=== PATIENT | male | born 1990 | race Caucasian/White ===

== ENCOUNTER 2016-12-28 23:13 | Inpatient (IN) | payer SELFPAY ==
[~2016-12-28] VITALS: Ht 180.3 cm; Wt 65.3 kg
[2016-12-28 23:14] VITALS: BP 135/81; PULSE 125; RESP 18; TEMP 98.7; O2SAT 97
[2016-12-28] MEDS ORDERED: AMOX500C PO (23:18)
--- NOTE | 2016-12-28 23:38 | PD ---
HPI Chief Complaint: Oral / Dental Pain or Problem Time Seen by Provider: 23:24 Travel History International Travel<30 days: No Contact w/Intl Traveler<30days: No Traveled to known affect area: No History of Present Illness HPI 26yo M with no significant PMH presents to the ED with c/o left jaw pain, left neck pain for 5 days. States he fractured his left lower wisdom tooth about 1 month ago but did not seek medical attention. Then about 1 week ago, started to have left lower tooth pain and for the last 5 days has been unable to open his mouth fully and has some drooling. [place] warm at home but no documented fever. Denies any chest pain, sob, n/v, abdominal pain. PFSH Past Medical History Medical History: Denies Significant Hx Past Surgical History Surgical History: No Previous Surgery Social History Alcohol Use: Yes (OCC.) Tobacco Use: Yes (1 PPD) Substance Use: No Allergies-Medications (Allergen,Severity, Reaction): Coded Allergies: No Known Allergies (Unverified , 12/28/16) Reported Meds & Prescriptions Reported Meds & Active Scripts Active Reported Amoxicillin 500 Mg Cap 500 Mg PO TID Review of Systems Except as stated in HPI: all other systems reviewed are Neg Physical Exam Narrative GENERAL: 26yo M in moderate distress. SKIN: Focused skin assessment warm/dry. HEAD: Atraumatic. Normocephalic. EYES: Pupils equal and round. No scleral icterus. No injection or drainage. ENT: +TTP left jaw. +Trismus. Uvula midline and patent airway. Do not feel any fluctuance in mouth but exam limited due to trismus. NECK: +TTP left anterior neck with some erythema but no edema. No crepitus. CARDIOVASCULAR: Regular rate and rhythm. No murmur appreciated. RESPIRATORY: No accessory muscle use. Clear to auscultation. Breath sounds equal bilaterally. GASTROINTESTINAL: Abdomen soft, non-tender, nondistended. MUSCULOSKELETAL: No obvious deformities. No clubbing. No cyanosis. No edema. NEUROLOGICAL: Awake and alert. No obvious cranial nerve deficits. Motor grossly within normal limits. Normal speech. PSYCHIATRIC: Appropriate mood and affect; insight and judgment normal. Data Data Last Documented VS Vital Signs Date Time Temp Pulse Resp B/P (MAP) Pulse Ox O2 Delivery O2 Flow Rate FiO2 12/28/16 23:14 98.7 125 18 135/81 (99) 97 Room Air Orders Orders Complete Blood Count With Diff (12/28/16 23:33) Basic Metabolic Panel (Bmp) (12/28/16 23:33) Clindamycin Inj (Cleocin Inj) (12/28/16 23:45) Morphine Inj (Morphine Inj) (12/28/16 23:45) Ct Soft Tiss Neck W Iv Cont (12/28/16 ) Lactic Acid Sepsis Protocol (12/28/16 23:35) Sodium Chlor 0.9% 1000 Ml Inj (Ns 1000 M (12/28/16 23:45) Iohexol 350 Inj (Omnipaque 350 Inj) (12/29/16 00:27) NPO (12/29/16 00:45) Dexamethasone Inj (Decadron Inj) (12/29/16 00:45) Consult Oral, Facial Surgery (12/29/16 ) Admit Order (Ed Use Only) (12/29/16 01:03) Elevate Head Of Bed (12/29/16 01:03) Clindamycin Inj (Cleocin Inj) (12/29/16 08:00) Admit To Inpatient (12/29/16 ) Vital Signs (Adult) Q4H (12/29/16 01:02) Activity Oob Ad Yasmin (12/29/16 01:02) Diet Npo (12/29/16 Breakfast) Sodium Chlor 0.9% 1000 Ml Inj (Ns 1000 M (12/29/16 01:02) Sodium Chloride 0.9% Flush (Ns Flush) (12/29/16 01:15) Sodium Chloride 0.9% Flush (Ns Flush) (12/29/16 09:00) Ondansetron Inj (Zofran Inj) (12/29/16 01:15) Comprehensive Metabolic Panel (12/30/16 06:00) Complete Blood Count With Diff (12/30/16 06:00) Scd Bilateral/Knee High ANIA.BID (12/29/16 01:02) Umer Bilateral/Knee High ANIA.QSHIFT (12/29/16 01:04) Morphine Inj (Morphine Inj) (12/29/16 01:15) Morphine Inj (Morphine Inj) (12/29/16 01:15) Acetaminophen 1000 Mg/100 Ml (Ofirmev 10 (12/29/16 01:15) Docusate Sodium-Senna (Lesa-Colace) (12/29/16 09:00) Magnesium Hydroxide Liq (Milk Of Magnesi (12/29/16 01:15) Sennosides (Senokot) (12/29/16 01:15) Bisacodyl Supp (Dulcolax Supp) (12/29/16 01:15) Lactulose Liq (Lactulose Liq) (12/29/16 01:15) Inpatient Certification (12/29/16 ) Labs Laboratory Tests Test 12/28/16 23:50 White Blood Count 15.0 TH/MM3 Red Blood Count 4.90 MIL/MM3 Hemoglobin 15.2 GM/DL Hematocrit 43.6 % Mean Corpuscular Volume 89.1 FL Mean Corpuscular Hemoglobin 31.1 PG Mean Corpuscular Hemoglobin Concent 35.0 % Red Cell Distribution Width 13.0 % Platelet Count 259 TH/MM3 Mean Platelet Volume 8.6 FL Neutrophils (%) (Auto) 83.7 % Lymphocytes (%) (Auto) 7.6 % Monocytes (%) (Auto) 8.0 % Eosinophils (%) (Auto) 0.4 % Basophils (%) (Auto) 0.3 % Neutrophils # (Auto) 12.5 TH/MM3 Lymphocytes # (Auto) 1.1 TH/MM3 Monocytes # (Auto) 1.2 TH/MM3 Eosinophils # (Auto) 0.1 TH/MM3 Basophils # (Auto) 0.0 TH/MM3 CBC Comment DIFF FINAL Differential Comment Blood Urea Nitrogen 8 MG/DL Creatinine 0.89 MG/DL Random Glucose 104 MG/DL Calcium Level 9.4 MG/DL Sodium Level 135 MEQ/L Potassium Level 3.5 MEQ/L Chloride Level 99 MEQ/L Carbon Dioxide Level 28.2 MEQ/L Anion Gap 8 MEQ/L Estimat Glomerular Filtration Rate 105 ML/MIN Lactic Acid Level 0.9 mmol/L MDM Medical Decision Making Medical Screen Exam Complete: Yes Emergency Medical Condition: Yes Differential Diagnosis Cellulitis vs. abscess vs. radiation of dental pain Narrative Course 26yo M with left jaw pain, trismus for 5 days. Labs reviewed, leukocytosis at 15. Lactic acid normal at 0.9. BMP unremarkable. CT soft tissue neck/ mandible revealed an abscess along left inner mandible measuring 2.7 x 3.2cm with reactive lymph node in submandibular region. Pt was given IV clindamycin and morphine. Discussed with Dr. Grace and recommended medicine admission, decadron, head of bed at 30 degrees, NPO and he will see him. Discussed with Dr. Rodas and accepted to her service. Pt is currently denying any SOB and airway is patent. Critical Care Narrative Aggregate critical care time was 50 minutes. Time to perform other separately billable procedures was not included in the critical care time. My time did not include minutes spent treating any other patients simultaneously or on activities that did not directly contribute to the patient's treatment. The services I provided to this patient were to treat and/or prevent clinically significant deterioration that could result in: cardiovascular collapse or . I provided critical care services requiring my management, as noted below: Chart data review, documentation time, medication orders and management, vital sign assessments/reviewing monitor data, ordering and reviewing lab tests, ordering and interpreting/reviewing x-rays and diagnostic studies, care of the patient and discussion of the patient with the admitting physicians. Sepsis Criteria SIRS Criteria (2 or more): Heart rate over 90, WBC > 66611, < 4000 or > 10% bands Sepsis Criteria (SIRS+source): Infect source susp/known Diagnosis Primary Impression: Mandibular abscess Admitting Information Admitting Physician Requests: Admit Darcie Martinez DO Dec 28, 2016 23:38
[2016-12-28] MEDS ORDERED: CLINDAMYCIN INJ 600 MG in SODIUM CHLORIDE 0.9% INJ 100 ML IV ONE (23:45)
[2016-12-28] MEDS ORDERED: SODIUM CHLOR 0.9% 1000 ML INJ 1,000 ML IV ONE (23:45)
[2016-12-28] MEDS ORDERED: MORPHINE SULFATE 4 MG/ML INJ IV PUSH ONE (23:45)
[2016-12-29 00:08] LABS: AUTOMATED NEUTROPHIL # 12.5 TH/MM3 (1.8-7.7); BASOPHIL % 0.3 % (0.0-2.0); EOSINOPHIL # 0.1 TH/MM3 (0-0.4); EOSINOPHIL % 0.4 % (0.0-4.0); HEMATOCRIT 43.6 % (39.0-51.0); HEMO FLAGS DIFF FINAL; LYMPH % 7.6 % (9.0-44.0); LYMPHOCYTE # 1.1 TH/MM3 (1.0-4.8); MEAN CELL VOLUME 89.1 FL (80.0-100.0); MEAN CORPUSCULAR HEMOGLOBIN 31.1 PG (27.0-34.0); NEUT % 83.7 % (16.0-70.0); PLATELET COUNT 259 TH/MM3 (150-450)
[2016-12-29 00:17] LABS: BICARBONATE 28.2 MEQ/L (21.0-32.0); POTASSIUM 3.5 MEQ/L (3.5-5.1)
[2016-12-29] MEDS ORDERED: IOHEXOL 350 MG/ML 10 ML VIAL (for RAD DIAG) IVCONTRAST ONE (00:27)
--- NOTE | 2016-12-29 00:34 | RADRPT ---
EXAM DATE/TIME: 12/29/2016 00:04 [facility] COMPARISON: No previous studies available for comparison. INDICATIONS : Left side face and neck swelling. IV CONTRAST: 75 cc Omnipaque 350 (iohexol) IV RADIATION DOSE: 13.56 CTDIvol (mGy) MEDICAL HISTORY : None SURGICAL HISTORY : None. ENCOUNTER: Initial ACUITY: 4 - 6 days PAIN SCALE: 10/10 LOCATION: Left neck TECHNIQUE: Volumetric scanning of the neck was performed. Using automated exposure control and adjustment of th e mA and/or kV according to patient size, radiation dose was kept as low as reasonably achievable to obtain optimal diagnostic quality images. DICOM format image data is available electronically for r eview and comparison. FINDINGS: NASOPHARYNX: The nasopharyngeal airway has a normal configuration. No mucosal thickening or mass is seen. OROPHARYNX: The intrinsic muscles of the tongue are symmetric. The tonsillar pillars are intact. The prevertebr al soft tissues are not thickened. LARYNX: The supraglottic, glottic, and infraglottic structures are intact. PARAPHARYNGEAL: The parapharyngeal space is intact. SALIVARY GLANDS: The parotid and submandibular glands are intact. LYMPH NODES: No enlarged or necrotic-appearing nodes. THYROID: Homogeneous enhancement without evidence of nodule. BONES: Unremarkable. OTHER: There is extensive soft tissue swelling along the left cheek. There is an area of low-density with pe ripheral enhancement along the inner left mandible measuring 2.7 x 3.2 cm consistent with abscess. [place] bmandibular lymph node is seen measuring 2.0 x 1.3 cm. There is central low-density within the waiter/waitress cocktail lounge ior molar of the mandible on the left. This does not involve the roots but may be the cause of absces s. CONCLUSION: 1. There is an abscess along the left inner mandible measuring 2.7 x 3.2 cm with reactive lymph node the submandibular region measuring 1.3 x 2.0 cm. 2. Central low-density within the posterior molar of the left mandible which does not involve the mohamud t but may be the cause of the abscess. Srinivasan Gaona MD on December 29, 2016 at 0:30 Board Certified Radiologist. This report was verified electronically.
[2016-12-29] MEDS ORDERED: DEXAMETHASONE SOD PHOS 20 MG/5 ML VIAL IV PUSH ONE (00:45)
[2016-12-29] MEDS ORDERED: BISACODYL 10 MG SUPP RECTAL PRN (01:15)
[2016-12-29] MEDS ORDERED: MORPHINE SULFATE 4 MG/ML INJ IV PUSH PRN (01:15)
[2016-12-29] MEDS ORDERED: ACETAMINOPHEN 1000 MG/100 ML 100 ML IV PRN (01:15)
[2016-12-29] MEDS ORDERED: LACTULOSE SYRUP 20 GM/30 ML CUP PO PRN (01:15)
[2016-12-29] MEDS ORDERED: ONDANSETRON HCL 4 MG/2 ML VIAL IVP PRN (01:15)
[2016-12-29] MEDS ORDERED: SENNOSIDES 8.6 MG TAB PO PRN (01:15)
[2016-12-29] MEDS ORDERED: MAGNESIUM HYDROXIDE SUSP 30 ML CUP PO PRN (01:15)
[2016-12-29] MEDS ORDERED: SODIUM CHLORIDE 0.9% FLUSH 10 ML FLUSH IV FLUSH PRN (01:15)
--- NOTE | 2016-12-29 02:24 | HHI.HP ---
HPI Service [facility] Primary Care Physician No Primary Care Physician Admission Diagnosis Left mandible abscess Diagnoses: (1) Sepsis Diagnosis: Principal (2) Mandibular abscess Diagnosis: Principal (3) Tobacco abuse Diagnosis: Principal Travel History International Travel<30 Days: No Contact w/Intl Traveler <30 Da: No Traveled to Known Affected Are: No Sepsis Criteria SIRS Criteria (2 or more): Heart rate over 90, WBC > 23505, < 4000 or > 10% bands Sepsis Criteria (SIRS+source): Infect source susp/known History of Present Illness This is a 26-year-old male with no significant PMH who presented to the ER with complaints of left sided neck and jaw pain for approx 5 days. States he had issue w/ his wisdom tooth approx 1mo ago but didn't seek medical attention at that time despite c/o pain. Approx 1wk ago noted worsening pain to left tooth and jaw. States he had Amoxicillin left over from previous tooth infection and has been taking that for the last 5 days w/ no significant improvement. Reports subjective fever, chills. On arrival, BP 135/81, HR 125, O2 sat 97% on RA, Afebrile. The VPC 15. Chemistry essentially unremarkable. Lactic Acid normal. CT Neck with abscess along the left inner mandible measuring 2.7 x 3.2 cm with reactive lymph nodes. Dr. Grace consulted by ER physician, will evaluate in a.m. for likely surgical intervention. S/p Decadron and Clinda IV. Review of Systems Except as stated in HPI: all other systems reviewed are Neg ROS: 14 point review of systems otherwise negative. Past Family Social History Past Medical History PMH: None Past Surgical History PAST SURGICAL HISTORY: None Allergies: Coded Allergies: No Known Allergies (Unverified , 12/28/16) Family History PAST FAMILY HISTORY: Reviewed. No h/o DM or CAD Social History PAST SOCIAL HISTORY: Occasional alcohol. Smokes 1ppd. Negative for drugs. Physical Exam Vital Signs Vital Signs Date Time Temp Pulse Resp B/P (MAP) Pulse Ox O2 Delivery O2 Flow Rate FiO2 12/28/16 23:14 98.7 125 18 135/81 (99) 97 Room Air Physical Exam PE: GENERAL: Young male in no acute distress. HEENT: PERRLA, EOMI. No scleral icterus or conjunctival pallor. No lid lag or facial droop. Tenderness to palpation left jaw. +Trismus CARDIOVASCULAR: Regular rate and rhythm. No obvious murmurs to auscultation. No chest tenderness to palpation. RESPIRATORY: No obvious rhonchi or wheezing. Clear to auscultation. Breath sounds equal bilaterally. GASTROINTESTINAL: Abdomen soft, non-tender, nondistended. BS normal. MUSCULOSKELETAL: Extremities without clubbing, cyanosis, or edema. No obvious deformities. NEUROLOGICAL: Awake, alert and oriented x4. No focal neurologic deficits. Moving both upper and lower extremities spontaneously. Laboratory Laboratory Tests Test 12/28/16 23:50 White Blood Count 15.0 Red Blood Count 4.90 Hemoglobin 15.2 Hematocrit 43.6 Mean Corpuscular Volume 89.1 Mean Corpuscular Hemoglobin 31.1 Mean Corpuscular Hemoglobin Concent 35.0 Red Cell Distribution Width 13.0 Platelet Count 259 Mean Platelet Volume 8.6 Neutrophils (%) (Auto) 83.7 Lymphocytes (%) (Auto) 7.6 Monocytes (%) (Auto) 8.0 Eosinophils (%) (Auto) 0.4 Basophils (%) (Auto) 0.3 Neutrophils # (Auto) 12.5 Lymphocytes # (Auto) 1.1 Monocytes # (Auto) 1.2 Eosinophils # (Auto) 0.1 Basophils # (Auto) 0.0 CBC Comment DIFF FINAL Differential Comment Blood Urea Nitrogen 8 Creatinine 0.89 Random Glucose 104 Calcium Level 9.4 Sodium Level 135 Potassium Level 3.5 Chloride Level 99 Carbon Dioxide Level 28.2 Anion Gap 8 Estimat Glomerular Filtration Rate 105 Lactic Acid Level 0.9 Result Diagram: 12/28/16234912/28/162349 Caprini VTE Risk Assessment Caprini VTE Risk Assessment: No/Low Risk (score <= 1) Caprini Risk Assessment Model Point Value = 1 Point Value = 2 Point Value = 3 Point Value = 5 Age 41-60 Minor surgery BMI > 25 kg/m2 Swollen legs Varicose veins or History of unexplained or recurrent spontaneous Oral contraceptives or hormone replacement Sepsis (< 1 month) Serious lung disease, including pneumonia (< 1 month) Abnormal pulmonary function Acute myocardial infarction Congestive heart failure (< 1 month) History of inflammatory bowel disease Medical patient at bed rest Age 61-74 Arthroscopic surgery Major open surgery (> 45 min) Laparoscopic surgery (> 45 min) Malignancy Confined to bed (> 72 hours) Immobilizing plaster cast Central venous access Age >= 75 History of VTE Family history of VTE Factor V Leiden Prothrombin [id number] Lupus anticoagulant Anticardiolipin antibodies Elevated serum homocysteine Heparin-induced thrombocytopenia Other congenital or acquired thrombophilia Stroke (< 1 month) Elective arthroplasty Hip, pelvis, or leg fracture Acute spinal cord injury (< 1 month) Prophylaxis Regimen Total Risk Factor Score Risk Level Prophylaxis Regimen 0-1 Low Early ambulation 2 Moderate Order ONE of the following: *Sequential Compression Device (SCD) *Heparin 5000 units SQ BID 3-4 Higher Order ONE of the following medications: *Heparin 5000 units SQ TID *Enoxaparin/Lovenox 40 mg SQ daily (WT < 150 kg, CrCl > 30 mL/min) *Enoxaparin/Lovenox 30 mg SQ daily (WT < 150 kg, CrCl > 10-29 mL/min) *Enoxaparin/Lovenox 30 mg SQ BID (WT < 150 kg, CrCl > 30 mL/min) AND/OR *Sequential Compression Device (SCD) 5 or more Highest Order ONE of the following medications: *Heparin 5000 units SQ TID (Preferred with Epidurals) *Enoxaparin/Lovenox 40 mg SQ daily (WT < 150 kg, CrCl > 30 mL/min) *Enoxaparin/Lovenox 30 mg SQ daily (WT < 150 kg, CrCl > 10-29 mL/min) *Enoxaparin/Lovenox 30 mg SQ BID (WT < 150 kg, CrCl > 30 mL/min) AND *Sequential Compression Device (SCD) Assessment and Plan Problem List: (1) Sepsis ICD Code: A41.9 - Sepsis, unspecified organism (2) Mandibular abscess ICD Code: M27.2 - Inflammatory conditions of jaws (3) Tobacco abuse ICD Code: Z72.0 - Tobacco use Assessment and Plan A/P: 1. Sepsis: HR 120's, WBC 15, Source-mandibular abscess. S/p Clinda IV in ER, continue w/ IV Abx. IVF for hydration. 2. Left Mandibular Abscess: c/o left lower tooth pain x5 days, taking left over Amoxicillin w/ no improvement. CT Neck w/ abscess along the left inner mandible measuring 2.7 x 3.2 cm, images reviewed by me. Dr. Grace consulted by ER physician, will eval for likely surgical intervention. S/p Decadron and Clinda in ER. Continue IV Abx, analgesic/antiemetics. 3. Tobacco Abuse: Counselled. NicoDerm prn if needed. 4. DVT Prophylaxis: SCD/Teds. 5. Social work for d/c planning as needed. 6. Case discussed w/ ER physician at length. Physician Certification 2 Midnight Certification Type: Admission for Inpatient Services Order for Inpatient Services The services are ordered in accordance with Medicare regulations or non- Medicare payer requirements, as applicable. In the case of services not specified as inpatient-only, they are appropriately provided as inpatient services in accordance with the 2-midnight benchmark. Estimated LOS (days): 2 days is the estimated time the patient will need to remain in the hospital, assuming treatment plan goals are met and no additional complications. Post-Hospital Plan: Not yet determined Tran Rodas MD Dec 29, 2016 02:24
[2016-12-29] MEDS: SODIUM CHLOR 0.9% 1000 ML INJ 1,000 ML IV SCH ×3 (02:39→21:02)
[2016-12-29 04:06] VITALS: BP 126/63; PULSE 100; RESP 17; TEMP 99.3; O2SAT 97
[2016-12-29] MEDS ORDERED: DEXAMETHASONE SOD PHOS 4 MG/ML VIAL IV PUSH SCH (06:00)
[2016-12-29] MEDS ORDERED: CLINDAMYCIN INJ 900 MG in SODIUM CHLORIDE 0.9% INJ 100 ML IV SCH (08:00)
[2016-12-29 08:13] VITALS: BP 122/71; PULSE 82; RESP 24; TEMP 98; O2SAT 96
--- NOTE | 2016-12-29 08:40 | MB ---
cc: MARIELA GRACE DMD DATE OF CONSULTATION December 29, 2016 REASON FOR CONSULTATION Abscess left mandible. HISTORY OF PRESENT ILLNESS This is a 26-year-old male who approximately was having tooth discomfort in the left posterior mandible for approximately two weeks. He reports that his wisdom tooth in the back cracked and he never thought much about it and it started giving him discomfort with brushing the teeth. Subsequent to that he reports the swelling started and he was on some amoxicillin, some leftover amoxicillin, but it has not resolved. He never proceeded to see any dentist or oral surgeon. I have seen and examined this patient. He is alert, awake and oriented x 3, in no acute distress. He reports some pain in the left mandible region. Denies any fever, chills, nausea, vomiting, any shortness of breath, difficulty breathing or difficulty swallowing. He reports that the wisdom tooth was cracked. PAST MEDICAL HISTORY Denied. MEDICATIONS Denied. ALLERGIES Denied. SOCIAL HISTORY Denies any illicit drugs. Occasional alcohol and smokes about a pack per day of tobacco. PHYSICAL EXAMINATION On examination, tenderness to palpation of the left side mandible region. No neck edema. Trachea is in midline. Mild left facial edema on the left side region of the mandible. Intraorally he opens up approximately only one finger wide secondary to pain. He is guarding against pain. I do not see any swelling intraorally or any elevation of the floor of the mouth at this point. The left posterior wisdom tooth #17 is barely visible. It could be possibly soft tissue/partial bony or complete bony at this point. The flesh is pink and well-perfused. No pus noted. LABORATORY DATA White count is 15.0, H&H is 15.2 and 43.6 with platelets of 259. Sodium is 135, potassium is 3.5, chloride is 99, carbon dioxide is 28.2, BUN is 8 and creatinine 0.89. IMAGING STUDIES CT scan of the neck: Soft tissue neck shows a large abscess collection to the medial aspect of the mandible on the left side, extending down into the neck. Also a large node is noted. IMPRESSION AND PLAN This is a 26-year-old male with a history of broken tooth two weeks ago, now pain x5 days. This could be possibly the wisdom tooth on the left side, tooth #17. We will plan to extract that tooth and any other necessary teeth on the left posterior mandible close to the region of the abscess and I&D left neck/mandible space abscess. The benefits, risks and indication of the procedure, procedure in detail and the options of no treatment were all discussed with this patient. The risks include but are not limited to any postop pain, infection, bleeding, damage to the adjacent teeth, soft tissue, hard tissue, anesthesia complications including , recurrence of the infection, further surgeries as required, numbness. The patient is aware that he may be in the ICU overnight and that he will have drains in his neck and his mouth. Advised to see his dentist or oral surgeon for the remaining other teeth. All questions and concerns were addressed. Mariela Grace DMD RRT/BRADEN /8:06 AM /8:24 AM
[2016-12-29] MEDS: DOCUSATE SODIUM 50 MG/SENNA 8.6 MG TAB PO SCH ×2 (08:57→20:39)
[2016-12-29] MEDS: SODIUM CHLORIDE 0.9% FLUSH 10 ML FLUSH IV FLUSH SCH ×2 (08:57→20:39)
[2016-12-29] MEDS ORDERED: CHLORHEXIDINE GLUCONATE 2 % 1 PACK (2 CLOTHS) TOPICAL PRN (09:45)
[2016-12-29] MEDS ORDERED: INSULIN HUMAN REGULAR 1,000 UNITS/10 ML VIAL SQ PRN (09:45)
[2016-12-29] MEDS ORDERED: POVIDONE IODINE 5% (ANTISEPSIS KIT) 4 APPLICATIONS EACH NARE PRN (09:45)
[2016-12-29] MEDS ORDERED: SODIUM CHLORID 0.9% 500 ML IV PRN (09:45)
[2016-12-29] MEDS ORDERED: LACTATED RINGER'S 1000 ML IV PRN (09:45)
[2016-12-29] MEDS ORDERED: METOPROLOL TARTRATE 25 MG TAB PO PRN (09:45)
[2016-12-29 11:48] VITALS: BP 125/72; PULSE 99; RESP 24; TEMP 98.5; O2SAT 96
[2016-12-29] MEDS ORDERED: LIDOCAINE 2%/EPINEPHrine PF 1:200,000 20ML SDV ONE (13:37)
[2016-12-29] MEDS ORDERED: CHLORHEXIDINE GLUCONATE 0.12% 15 ML CUP ONE (13:37)
[2016-12-29] MEDS ORDERED: KETOROLAC TROMETHAMINE 30 MG/ML (IVP) VIAL IV PUSH ONE (13:38)
[2016-12-29] MEDS ORDERED: ROCURONIUM INJ 50 MG/5 ML SYRINGE IV PUSH ONE (13:38)
[2016-12-29] MEDS ORDERED: PROPOFOL 200 MG/20 ML AMP IV ONE (13:38)
[2016-12-29] MEDS ORDERED: DEXAMETHASONE SOD PHOS 4 MG/ML VIAL IV ONE (13:38)
[2016-12-29] MEDS ORDERED: MIDAZOLAM HCL 2 MG/2 ML VIAL IV ONE (13:38)
[2016-12-29] MEDS ORDERED: GLYCOPYRROLATE 1 MG/5 ML SYRINGE IV PUSH ONE (13:38)
[2016-12-29] MEDS ORDERED: MICROFIBRILLAR COLLAGEN HEMOSTAT 1 GM PKT ONE (13:38)
[2016-12-29] MEDS ORDERED: NEOSTIGMINE 3 MG/3 ML SYR IV ONE (13:38)
[2016-12-29] MEDS ORDERED: LIDOCAINE HCL 1% PF 5 ML AMPULE OTHER ONE (13:38)
[2016-12-29] MEDS ORDERED: ONDANSETRON HCL 4 MG/2 ML VIAL IV PUSH ONE (13:38)
[2016-12-29] MEDS ORDERED: MICROFIBRILLAR COLLAGEN HEMOSTAT 70 X 35 MM BANDAGE ONE (13:39)
[2016-12-29] MEDS ORDERED: OXYMETAZOLINE HCL 0.05% 15 ML NASAL SPRAY ONE (15:11)
[2016-12-29] MEDS ORDERED: ceFAZolin INJ 1,000 MG VIAL ONE (15:18)
[2016-12-29] MEDS ORDERED: SODIUM CHLORIDE 0.9% INJ 100 ML ONE ×2 (15:18)
[2016-12-29] MEDS ORDERED: ACETAMINOPHEN 1000 MG/100 ML 100 ML IV ONE (16:17)
[2016-12-29] MEDS ORDERED: DO NOT ADM ANY ANTICOAGULANT DRUGS PRN (17:00)
--- NOTE | 2016-12-29 17:03 | HHI.PR ---
Immediate Post Op Note Procedure Date: Dec 29, 2016 Pre Op Diagnosis: Left neck/mandible abscess decayed/broken tooth #17 Post Op Diagnosis: anabela Surgeon: Jak Grace Mirror Painter(s): Eric Lloyd Procedure: I&D left mandible/neck abscess extraction of tooth #17 exam under anesthesia Findings: pus , broken, decayed tooth #17 Complications: none Estimated blood loss: 10cc Anesthesia: General, Local (2%lidocaine with 1:200,000 epi approx 7cc) Drains: [place] (x 3) Patient to: PACU Patient Condition: Good Date/Time of Procedure: SEE SURGICAL CARE RECORD Jak Grace DMD Dec 29, 2016 17:03
[2016-12-29] MEDS ORDERED: *MEPERIDINE 25 MG INJ VIAL PERIprocedural Use ONLY ONE (17:21)
[2016-12-29] MEDS ORDERED: methylPREDNISolone SOD SUCC 125 MG/2 ML VIAL ONE (17:43)
[2016-12-29 18:00] VITALS: BP 129/75; PULSE 88; RESP 18; TEMP 98.1; O2SAT 97
[2016-12-29] MEDS: methylPREDNISolone SOD SUCC 125 MG/2 ML VIAL IV SCH ×2 (18:00→23:03)
[2016-12-29 20:00] VITALS: BP 121/74; PULSE 94; RESP 18; TEMP 98.5; O2SAT 98
[2016-12-29] MEDS: CLINDAMYCIN 600 MG/NS 100 ML IV SCH ×2 (20:39)
[2016-12-29 22:00] VITALS: PULSE 72
[2016-12-29] MEDS: MORPHINE SULFATE 4 MG/ML INJ IV PUSH PRN (23:04)
[2016-12-30] VITALS (8 sets, daily range): BP systolic 128–133; BP diastolic 74–89; PULSE 62–80; RESP 15–20; TEMP 97.6–98.9; O2SAT 96–98
[2016-12-30] MEDS: CLINDAMYCIN 600 MG/NS 100 ML IV SCH ×6 (03:15→21:19)
[2016-12-30] MEDS: SODIUM CHLOR 0.9% 1000 ML INJ 1,000 ML IV SCH ×3 (04:04→12:57)
[2016-12-30 05:55] LABS: AUTOMATED NEUTROPHIL # 10.3 TH/MM3 (1.8-7.7); BASOPHIL % 0.1 % (0.0-2.0); HEMATOCRIT 39.5 % (39.0-51.0); HEMO FLAGS DIFF FINAL; LYMPH % 6.6 % (9.0-44.0); LYMPHOCYTE # 0.7 TH/MM3 (1.0-4.8); MEAN CELL VOLUME 90.3 FL (80.0-100.0); MEAN CORPUSCULAR HEMOGLOBIN 30.2 PG (27.0-34.0); MEAN CORPUSCULAR HGB CONC 33.4 % (32.0-36.0); MONO % 2.7 % (0.0-8.0); NEUT % 90.6 % (16.0-70.0); PLATELET COUNT 280 TH/MM3 (150-450); RED BLOOD COUNT 4.38 MIL/MM3 (4.50-5.90); RED CELL DISTRIBUTION WIDTH 13.3 % (11.6-17.2); WHITE BLOOD COUNT 11.3 TH/MM3 (4.0-11.0)
[2016-12-30] MEDS ORDERED: methylPREDNISolone ACETATE 80 MG/ML VIAL IM ONE (06:00)
[2016-12-30 06:28] LABS: ALKALINE PHOSPHATASE 49 U/L (45-117); ALT (GPT) 23 U/L (12-78); ANION GAP 7 MEQ/L (5-15); AST (GOT) 16 U/L (15-37); BICARBONATE 26.4 MEQ/L (21.0-32.0); BLOOD UREA NITROGEN 11 MG/DL (7-18); CHLORIDE 104 MEQ/L (98-107); GLOMERULAR FILTRATION RATE 200 ML/MIN (>89); POTASSIUM 4.5 MEQ/L (3.5-5.1); SODIUM (NA) 137 MEQ/L (136-145); TOTAL BILIRUBIN ADULT 0.3 MG/DL (0.2-1.0)
--- NOTE | 2016-12-30 07:47 | MP ---
cc: MARIELA GRACE DMD [facility], DATE OF SURGERY 12/29/2016 PREOPERATIVE DIAGNOSIS Left neck/mandible abscess, also decayed broken tooth number 17. POSTOPERATIVE DIAGNOSIS Left neck/mandible abscess, also decayed broken tooth number 17. PROCEDURE Incision and drainage left neck/mandible abscess, extraction of tooth number 17, also examination under anesthesia. ANESTHESIA General also 2% lidocaine with 1:200,000 epinephrine approximately [address] Grace [employer]ER SERVICE SPECIALIST Eric Lloyd FINDINGS Pus, also broken decayed tooth number 17. ESTIMATED BLOOD LOSS 10 cc approximately. DRAINS Brice x3 DISPOSITION The patient tolerated the procedure well, extubated and taken to the PACU. INDICATIONS FOR PROCEDURE This is a 26-year-old male who for the past two weeks has had a decayed broken tooth number #17, a wisdom tooth the patient reports. Subsequently for last several days, he began to have more pain in that region extending down to his face going down to his neck. He has difficulty opening his mouth. He reports that all this started after the tooth number 17 broken in his mouth. He has a decay on tooth number 17 and he has purulence/pus accumulation medial aspect of the mandible going into the neck on the left mandible region and extending superiorly to the medial aspect of the ramus. In order to restore proper form and function, it is necessary the patient undergo the above listed procedure. The benefits, risks, indication of the procedure, the procedure in detail and the options of no treatment including alternatives were discussed with this patient. The risks are not limited to any postop pain, infection, bleeding, damage to the adjacent teeth, soft tissue, hard tissue, anesthesia complications, numbness, recurrence of infection, further surgical procedures as required. All questions and concerns were addressed. Consent is signed in the chart. PROCEDURE NOTE The patient was met perioperatively. The left side of the surgical side of the face was marked and all questions and concerns were addressed. The patient was taken to operating suite and put on the table in the supine position. He underwent glide scope intubation. At this time, a time-out was taken to identify the patient, the site, the procedure, surgery and all were in agreement. All pressure points were padded. Betadine prep was done on the face and on the neck. The patient draped in a normal sterile fashion. A bite block was gently placed on the right side of the mouth where the tube is going out. A retractor was used to gently retract the tongue and the back of the throat was suctioned. A moistened Ray-Lali was used as a throat pack. Peridex mouth rinse was then use. As we did this procedure, there was an area of pus pocketing that on the medial aspect of the ascending ramus superior to tooth number 17 that was so fluctuant that it just started pouring out pus. A culture was now taken out of that site. We took a hemostat and did a blunt dissection going posteriorly, superiorly and inferiorly. It appears that he is going on the medial aspect of the mandible on the ascending ramus going up and then looked like he wants to go towards lateral pharyngeal space, but I do not see any swelling in the posterior oropharynx or any lateral pharyngeal space. The uvula is at midline. 2% lidocaine with 1:200,000 epinephrine was now injected in the left neck where I was going to plan to make the incision and then the inferior nerve buccal block on the left 17 number site. Using a periosteal elevator, we slightly reflected the tissue on the lingual F18-17 site. As , I encountered more pus there. Once this was done, an elevator forceps was used to gently just take that tooth #17, it just pulled right out and more pus came out from underneath it and some blood in all regions from that site and was all noted in the whole site. We irrigated the whole area with saline solution. You can see that when I am irrigating the superior aspect where it was draining on the medial aspect of the mandible, the saline solution began to come out from the extraction socket. Also, irrigating the extraction socket, I could see the fluids all trying to come out on the lingual aspect of the mandible where I believe that the filling started coming out. Once this was all done, a 15 blade was used to make a small stab incision in the left mandible in the left neck region. A hemostat was used to do a blunt dissection to the medial aspect of the mandible on the left side and to the right of the region of tooth number 17. A quarter-inch Brice drain was grabbed and placed into that site. Coming out to the neck where it was going from the 17 site down into the neck. I can see it inside the mouth. Then another Nils drain was placed on the medial aspect superior of the ascending ramus and then under the mandible was placed on the lateral aspect of the mandible towards the angle of the mandible. The I take the periosteum also on the buccal aspect of the mandible and went down to the inferior border subperiosteally and no pus was noted there, but I put a drain there also. All the drains were secured 2-0 silk sutures. A 3-0 chromic suture was used to reapproximate the flap that was created lateral hockey stick behind tooth number 17. This was closed with 3-0 chromic suture. All sites were irrigated with saline solution. Once this was done, the back of the throat was suctioned. The throat pack and other throat pack, which was also placed intraoperatively, both the throat packs were removed. The back of the throat was nicely suctioned. Bite block was removed. Finally we put a 4x4 and Ismael dressing on the neck. The patient tolerated the procedure well. No complications noted. At the end of the procedure, all sponge and needle counts were accounted for. The patient will be taken to the ICU for observation. ADDENDUM Examination under anesthesia shows multiple decayed teeth, poor oral hygiene, a lot of plaque and calculus. The patient is going to require to follow up with a dentist as well oral surgeon. Mariela Grace DMD RRT/MARKUS /4:52 PM /7:19 AM
[2016-12-30] MEDS: SODIUM CHLORIDE 0.9% FLUSH 10 ML FLUSH IV FLUSH SCH ×2 (08:14→21:20)
[2016-12-30] MEDS: DOCUSATE SODIUM 50 MG/SENNA 8.6 MG TAB PO SCH ×2 (08:14→21:19)
--- NOTE | 2016-12-30 09:46 | HHI.PR ---
Subjective Remarks Patient resting comfortably. States pain is controlled. Feels tired. Objective Vitals Vital Signs Date Time Temp Pulse Resp B/P (MAP) Pulse Ox O2 Delivery O2 Flow Rate FiO2 12/30/16 08:00 97.9 63 15 133/74 (93) 96 12/30/16 08:00 68 12/30/16 07:00 95 Room Air 12/30/16 06:00 62 12/30/16 04:00 97.7 64 15 130/82 (98) 96 12/30/16 04:00 64 12/30/16 02:00 68 12/30/16 00:00 75 12/30/16 00:00 98.9 75 20 133/89 (104) 96 12/29/16 22:00 72 12/29/16 20:00 98.5 94 18 121/74 (90) 98 12/29/16 20:00 94 12/29/16 18:00 98.1 88 18 129/75 (93) 97 12/29/16 17:45 98.2 83 16 128/81 (97) 98 Room Air 12/29/16 17:30 85 16 126/80 (95) 96 Room Air 12/29/16 17:15 87 16 132/83 (99) 95 Room Air 12/29/16 17:00 92 17 140/92 (108) 97 Room Air 12/29/16 16:55 98.2 99 18 142/92 (109) 97 Room Air 12/29/16 11:48 98.5 99 24 125/72 (89) 96 I/O 12/29/16 12/29/16 12/29/16 12/30/16 12/30/16 12/30/16 07:00 15:00 23:00 07:00 15:00 23:00 Intake Total 1100 ml 1240 ml 1380 ml Output Total 10 ml 600 ml Balance 1100 ml 1230 ml 780 ml Intake Oral 100 ml IV Total 1100 ml 40 ml 1280 ml Other 1200 ml Output Urine Total 600 ml Estimated Blood Loss 10 ml # Voids 0 Result Diagram: 12/30/16 0445 12/30/16 0445 Imaging Last Impressions Neck CT 12/28/16 0000 Signed Impressions: Service Date/Time: December 00:04 - CONCLUSION: 1. There is an abscess along the left inner mandible measuring 2.7 x 3.2 cm with reactive lymph node the submandibular region measuring 1.3 x 2.0 cm. 2. Central low-density within the posterior molar of the left mandible which does not involve the root but may be the cause of the abscess. Srinivasan Gaona MD Objective Remarks General: No acute distress. Heart: Regular rate and rhythm. No murmur. Lungs: Clear to auscultation bilaterally. No wheezes, rales, or rhonchi. Breathing is nonlabored. Abdomen: Soft, nontender, nondistended. Extremities: No lower extremity edema. SCDs. Psych: Alert and oriented. Procedures 12/29/16 incision and drainage left neck/mandible abscess, extraction of tooth # 17, examination under anesthesia Urinary Catheter: No Vascular Central Line Catheter: No A/P Problem List: (1) Sepsis ICD Code: A41.9 - Sepsis, unspecified organism (2) Mandibular abscess ICD Code: M27.2 - Inflammatory conditions of jaws (3) Tobacco abuse ICD Code: Z72.0 - Tobacco use Assessment and Plan 1. Sepsis secondary to abscess: Patient presented with tachycardia, leukocytosis. Continue IV antibiotics. Continue IV fluids. 2. Left mandible abscess: Status post incision and drainage with removal of tooth. Management per oral maxillofacial surgery. 3. Tobacco abuse: Patient has been counseled. 4. DVT prophylaxis: DELORIS Douglas. Discharge Planning Transfer to medical/surgical floor. Chris Lambert MD Dec 30, 2016 09:46
[2016-12-30] MEDS: MORPHINE SULFATE 4 MG/ML INJ IV PUSH PRN (10:03)
[2016-12-30] MEDS ORDERED: ACETAMINOPHEN/HYDROcodone 325 MG/10 MG TAB PO PRN (13:15)
--- NOTE | 2016-12-30 14:06 | HHI.PR ---
Subjective Remarks pod 1 s/p I & D left neck/mandible abscess and extraction of tooth #17 pt seen and examined, this morning AAOx3 , nad, tolerating po reports feeling much better, and able to open mouth more denies f/c/n/v/sob/difficulty breathing/difficulty swallowing Objective Vital Signs Date Time Temp Pulse Resp B/P (MAP) Pulse Ox O2 Delivery O2 Flow Rate FiO2 12/30/16 10:48 98.3 80 20 130/79 (96) 96 12/30/16 08:00 97.9 63 15 133/74 (93) 96 12/30/16 08:00 68 12/30/16 07:00 95 Room Air 12/30/16 06:00 62 12/30/16 04:00 97.7 64 15 130/82 (98) 96 12/30/16 04:00 64 12/30/16 02:00 68 12/30/16 00:00 75 12/30/16 00:00 98.9 75 20 133/89 (104) 96 12/29/16 22:00 72 12/29/16 20:00 98.5 94 18 121/74 (90) 98 12/29/16 20:00 94 12/29/16 18:00 98.1 88 18 129/75 (93) 97 12/29/16 17:45 98.2 83 16 128/81 (97) 98 Room Air 12/29/16 17:30 85 16 126/80 (95) 96 Room Air 12/29/16 17:15 87 16 132/83 (99) 95 Room Air 12/29/16 17:00 92 17 140/92 (108) 97 Room Air 12/29/16 16:55 98.2 99 18 142/92 (109) 97 Room Air I/O 12/29/16 12/29/16 12/29/16 12/30/16 12/30/16 12/30/16 07:00 15:00 23:00 07:00 15:00 23:00 Intake Total 1100 ml 1240 ml 1380 ml 200 ml Output Total 10 ml 600 ml 775 ml Balance 1100 ml 1230 ml 780 ml -575 ml Intake Oral 100 ml 200 ml IV Total 1100 ml 40 ml 1280 ml Other 1200 ml Output Urine Total 600 ml 775 ml Estimated Blood Loss 10 ml # Voids 0 # Bowel Movements 0 Result Diagram: 12/30/16 0445 12/30/16 0445 Other Results gram + jamal Objective Remarks neck dressing/drain in place no neck edema, reduction in left facial edema increased range of opening, no elevation fom/tongue', no deviation of uvula no pus noted, all [address] extraction/surgical sites hemostatic/, wound margins well approximated Assessment and Plan Assessment and Plan pod 1 s/p I & D left neck/mandible abscess and extraction of tooth #17 - significantly improved decrease in WBC final culture pending continue abx plan for drain removal tomorrow Jak Grace DMD Dec 30, 2016 14:06
[2016-12-30] MEDS: ACETAMINOPHEN/HYDROcodone 325 MG/5 MG TAB PO PRN ×2 (15:32→21:19)
[2016-12-31 00:13] VITALS: BP 119/70; PULSE 68; RESP 18; TEMP 97.3; O2SAT 96
[2016-12-31] MEDS: ACETAMINOPHEN/HYDROcodone 325 MG/5 MG TAB PO PRN ×2 (01:45→11:37)
[2016-12-31] MEDS: SODIUM CHLOR 0.9% 1000 ML INJ 1,000 ML IV SCH (03:02)
[2016-12-31] MEDS: CLINDAMYCIN 600 MG/NS 100 ML IV SCH ×2 (04:09)
[2016-12-31 04:23] VITALS: BP_SYST 119; BP_SYST 134; BP_DIAS 70; BP_DIAS 80; PULSE 68; PULSE 71; RESP 18; RESP 20; TEMP 97.3; TEMP 97.9; O2SAT 96; O2SAT 98
--- NOTE | 2016-12-31 07:59 | HHI.PR ---
Subjective Remarks pod 2 s/p I & D left neck/mandible abscess and extraction of tooth #17 pt seen and examined, this morning, nurse at bedside AAOx3 , nad, tolerating po better reports feeling much better denies f/c/n/v/sob/difficulty breathing/difficulty swallowing Objective Vital Signs Date Time Temp Pulse Resp B/P (MAP) Pulse Ox O2 Delivery O2 Flow Rate FiO2 12/31/16 04:23 97.9 71 20 134/80 (98) 98 12/31/16 03:02 18 12/31/16 00:13 97.3 68 18 119/70 (86) 96 12/30/16 20:37 97.9 68 18 128/78 (95) 98 12/30/16 16:12 97.6 76 20 133/79 (97) 98 12/30/16 10:48 98.3 80 20 130/79 (96) 96 12/30/16 08:00 97.9 63 15 133/74 (93) 96 12/30/16 08:00 68 I/O 12/30/16 12/30/16 12/30/16 12/31/16 12/31/16 12/31/16 07:00 15:00 23:00 07:00 15:00 23:00 Intake Total 1380 ml 780 ml 100 ml Output Total 600 ml 775 ml Balance 780 ml 5 ml 100 ml Intake Oral 100 ml 680 ml IV Total 1280 ml 100 ml 100 ml Output Urine Total 600 ml 775 ml # Voids 1 2 1 # Bowel Movements 0 1 0 Result Diagram: 12/30/16 0445 12/30/16 044 Objective Remarks neck dressing/drain in place no neck edema, significant reduction in left facial edema increased range of opening, no elevation fom/tongue', no deviation of uvula no pus noted, all [address] extraction/surgical sites hemostatic/, wound margins well approximated Assessment and Plan Assessment and Plan pod 2 s/p I & D left neck/mandible abscess and extraction of tooth #17 - significantly improved clinically decrease in WBC, afebrile removed all 3 [place] drains ok to d/c to home form oms standpoint f/up dr grace next week [phone]; [facility] advance to soft diet maintain good oral hygiene - f/u with general dentist Jak Grace DMD Dec 31, 2016 07:59
[2016-12-31 08:14] VITALS: BP 111/73; PULSE 60; RESP 20; TEMP 97.6; O2SAT 99
[2016-12-31] MEDS: DOCUSATE SODIUM 50 MG/SENNA 8.6 MG TAB PO SCH (08:20)
[2016-12-31] MEDS: SODIUM CHLORIDE 0.9% FLUSH 10 ML FLUSH IV FLUSH SCH (08:20)
[2016-12-31 09:13] LABS: AUTOMATED NEUTROPHIL # 5.6 TH/MM3 (1.8-7.7); BASOPHIL % 0.2 % (0.0-2.0); EOSINOPHIL % 0.2 % (0.0-4.0); HEMATOCRIT 41.1 % (39.0-51.0); HEMO FLAGS DIFF FINAL; LYMPH % 24.9 % (9.0-44.0); MEAN CELL VOLUME 90.8 FL (80.0-100.0); MEAN CORPUSCULAR HEMOGLOBIN 30.4 PG (27.0-34.0); MEAN CORPUSCULAR HGB CONC 33.5 % (32.0-36.0); MONO % 7.2 % (0.0-8.0); NEUT % 67.5 % (16.0-70.0); PLATELET COUNT 336 TH/MM3 (150-450); RED BLOOD COUNT 4.52 MIL/MM3 (4.50-5.90); RED CELL DISTRIBUTION WIDTH 13.4 % (11.6-17.2); WHITE BLOOD COUNT 8.2 TH/MM3 (4.0-11.0)
[2016-12-31] MEDS ORDERED: LACTTAB8 PO (09:31)
[2016-12-31] MEDS ORDERED: CLIN1CAP6 PO (09:32)
[2016-12-31 09:52] LABS: BICARBONATE 27.9 MEQ/L (21.0-32.0); POTASSIUM 3.5 MEQ/L (3.5-5.1)
--- NOTE | 2016-12-31 09:52 | HHI.DCPOC ---
Discharge Care Plan Diagnosis: (1) Abscess (2) Sepsis (3) Mandibular abscess (4) Tobacco abuse Goals to Promote Your Health * To prevent worsening of your condition and complications * To maintain your health at the optimal level Directions to Meet Your Goals Take your medications as prescribed Follow your dietary instruction Follow activity as directed Keep your appointments as scheduled Take your immunizations and boosters as scheduled If your symptoms worsen call your PCP, if no PCP go to Urgent Care Center or Emergency Room Smoking is Dangerous to Your Health. Avoid second hand smoke Call the 24-hour hour crisis hotline for domestic abuse at Chris Lambert MD Dec 31, 2016 09:52
--- NOTE | 2016-12-31 09:55 | HHI.DS ---
Discharge Summary Admission Date Dec 29, 2016 at 01:06 Discharge Date: Dec 31, 2016 Admitting Diagnosis Left mandible abscess (1) Sepsis ICD Code: A41.9 - Sepsis, unspecified organism (2) Mandibular abscess ICD Code: M27.2 - Inflammatory conditions of jaws (3) Tobacco abuse ICD Code: Z72.0 - Tobacco use Procedures 12/29/16 incision and drainage left neck/mandible abscess, extraction of tooth # 17, examination under anesthesia Brief History - From Admission This is a 26-year-old male with no significant PMH who presented to the ER with complaints of left sided neck and jaw pain for approx 5 days. States he had issue w/ his wisdom tooth approx 1mo ago but didn't seek medical attention at that time despite c/o pain. Approx 1wk ago noted worsening pain to left tooth and jaw. States he had Amoxicillin left over from previous tooth infection and has been taking that for the last 5 days w/ no significant improvement. Reports subjective fever, chills. On arrival, BP 135/81, HR 125, O2 sat 97% on RA, Afebrile. The VPC 15. Chemistry essentially unremarkable. Lactic Acid normal. CT Neck with abscess along the left inner mandible measuring 2.7 x 3.2 cm with reactive lymph nodes. Dr. Grace consulted by ER physician, will evaluate in a.m. for likely surgical intervention. S/p Decadron and Clinda IV. CBC/BMP: 12/31/16 0833 12/30/16 0445 Significant Findings Laboratory Tests Test 12/28/16 23:50 12/29/16 18:15 12/30/16 04:45 12/31/16 05:33 White Blood Count 15.0 TH/MM3 (4.0-11.0) 11.3 TH/MM3 (4.0-11.0) Neutrophils (%) (Auto) 83.7 % (16.0-70.0) 90.6 % (16.0-70.0) Lymphocytes (%) (Auto) 7.6 % (9.0-44.0) 6.6 % (9.0-44.0) Neutrophils # (Auto) 12.5 TH/MM3 (1.8-7.7) 10.3 TH/MM3 (1.8-7.7) Monocytes # (Auto) 1.2 TH/MM3 (0-0.9) Sodium Level 135 MEQ/L (136-145) Red Blood Count 4.38 MIL/MM3 (4.50-5.90) Lymphocytes # (Auto) 0.7 TH/MM3 (1.0-4.8) Creatinine 0.51 MG/DL (0.60-1.30) Random Glucose 128 MG/DL (74-106) Albumin 2.9 GM/DL (3.4-5.0) Test 12/31/16 08:33 Imaging Last Impressions Neck CT 12/28/16 0000 Signed Impressions: Service Date/Time: December 00:04 - CONCLUSION: 1. There is an abscess along the left inner mandible measuring 2.7 x 3.2 cm with reactive lymph node the submandibular region measuring 1.3 x 2.0 cm. 2. Central low-density within the posterior molar of the left mandible which does not involve the root but may be the cause of the abscess. Srinivasan Gaona MD PE at Discharge General: No acute distress. Heart: Regular rate and rhythm. No murmur. Lungs: Clear to auscultation bilaterally. No wheezes, rales, or rhonchi. Breathing is nonlabored. Abdomen: Soft, nontender, nondistended. Extremities: No lower extremity edema. SCDs. Psych: Alert and oriented. Pt update on day of discharge The patient is requesting discharge home. He denies pain currently. Drains were removed this morning. Hospital Course The patient was admitted for management of sepsis secondary to left mandibular abscess. Maxillary facial surgery was consulted. Patient had incision and drainage with tooth extraction. He was continued on IV antibiotics. Pain was well controlled postoperatively. Patient continued to improve clinically. The drains were removed and the patient was cleared for discharge by maxillofacial surgery. He was felt to be stable for discharge home. He was counseled to quit smoking. Pt Condition on Discharge: Stable Discharge Disposition: Discharge Home Discharge Time: > 30 minutes Discharge Instructions DIET: Follow Instructions for: As Tolerated, No Restrictions, Soft Diet Activities you can perform: Regular-No Restrictions Follow up Referrals: Dental - 1 Week Oral Maxillary Surgery - 3-5 Days @ [facility] with Jak Grace DMD PCP Follow-up New Medications: Clindamycin (Clindamycin) 300 Mg Cap 600 MG PO Q8H for Infection for 4 Days, #24 CAP 0 Refills Lactobacillus Acidophilus (Lactobacillus Acidophilus) 1 Billion Cell Tab 1 TAB PO TIDAC for Nutritional Supplement for 30 Days, #90 TAB 0 Refills Discontinued Medications: Amoxicillin (Amoxicillin) 500 Mg Cap 500 MG PO TID for Infection, CAP 0 Refills Chris Lambert MD Dec 31, 2016 09:54
== END 2016-12-31 12:08 | disposition home or self-care (01) | DRG 854 ==
LOC: NEPD 23:13 → NEDA 12-29 01:06 → NEPHCDU 12-29 03:01 → N07B 12-29 16:51 → N03B 12-29 16:54 → N05A 12-30 10:27
PROVIDERS: ADMIT Hospitalist; ATTEND Family Medicine
PROC: 0H94XZZ Drainage of Neck Skin, External Approach (ICD-10-PCS; 2016-12-29)
PROC: 0CDXXZ0 Extraction of Lower Tooth, Single, External Approach (ICD-10-PCS; 2016-12-29)
PROC: 0W950ZZ Drainage of Lower Jaw, Open Approach (ICD-10-PCS; principal; 2016-12-29 15:30)
DX: A41.9 Sepsis, unspecified organism (principal); M27.2 Inflammatory conditions of jaws; L02.11 Cutaneous abscess of neck; K02.9 Dental caries, unspecified; K04.7 Periapical abscess without sinus; S02.5XXA Fracture of tooth (traumatic), initial encounter for closed fracture; F17.210 Nicotine dependence, cigarettes, uncomplicated
CPT/HCPCS: 70491; 80048; 80053; 83605; 85025; 87015; 87070; 87102; 87116; 87205; 87206; 87641; 96361; 96365; 96375; J0131; J0690; J1040; J1100; J1885; J2175; J2250; J2270; J2405; J2710; J2930; J3010; J7030; J7120; Q9967